=== PATIENT | female | born 1950 | race Caucasian/White ===

== ENCOUNTER → 2021-01-18 | Outpatient (CLI) | payer MEDICARE, OTHER | LOC: HEART 5 07:54 | DX: R06.09 Other forms of dyspnea (principal); I34.8 Other nonrheumatic mitral valve disorders | CPT/HCPCS: 93306 ==

== ENCOUNTER → 2022-01-16 | Outpatient (CLI) | payer MEDICARE, OTHER | LOC: KOH-I 09:38 | DX: M25.511 Pain in right shoulder (principal); M19.011 Primary osteoarthritis, right shoulder | CPT/HCPCS: 73030 ==

== ENCOUNTER → 2022-06-27 | Outpatient (CLI) | payer OTHER | LOC: HEART 5 07:30 | DX: R00.2 Palpitations (principal) ==